=== PATIENT | female | born 1970 | race Caucasian/White ===

== ENCOUNTER 2016-09-28 06:36 | Day surgery (SDC) | payer BC ==
[2016-09-27 09:41] LABS: CHLORIDE,CL 107 mmol/L (98-110); SODIUM,NA 141 mmol/L (136-146)
[~2016-09-28 06:36] MED LIST: Lactated Ringers 1,000 ML IV SCH; Sodium Chloride 0.9% 10 ML Syringe FLUSH PRN; Sodium Chloride 0.9% 2.5 ML Syringe FLUSH PRN; ceFAZolin 2 GM in Premix Bag 1 BAG IV ONE
[2016-09-28] MEDS ORDERED: Scopolamine 1.5 MG Transdermal Patch TRDERM PRN (07:16)
--- NOTE | 2016-09-28 07:16 | PCM.PREANE ---
Preanesthetic Assessment - Anesthesia/Transfusion/Family Hx Anesthesia History: Prior Anesthesia Without Reaction Type of Anesthesia Reaction: Other (see below) (naemea) Family History of Anesthesia Reaction: No Transfusion History: Prior Transfusion Without Reaction Intubation History: Unknown - Review of Systems General: No Symptoms Pulmonary: No Symptoms Cardiovascular: No Symptoms Gastrointestinal: No symptoms Neurological: No Symptoms Other: Reports: None - Physical Assessment O2 Sat by Pulse Oximetry: 97 Respiratory Rate: 16 Vital Signs: Last Vital Signs Temp 35.9 C 09/28/16 06:57 Pulse 74 09/28/16 06:57 Resp 16 09/28/16 06:57 BP 117/75 09/28/16 06:57 Pulse Ox 97 09/28/16 06:57 Height: 1.63 m Weight: 75.296 kg ASA Class: 1 Mental Status: Alert & Oriented x3 Airway Class: Mallampati = 2 Dentition: Reports: Normal Dentition Thyro-Mental Finger Breadths: 3 Mouth Opening Finger Breadths: 3 ROM/Head Extension: Full Lungs: Clear to auscultation, Normal respiratory effort Cardiovascular: Regular Rate, Regular Rhythm - Lab Values: Laboratory Last Values WBC 5.28 K/uL (4.0-11.0) 09/27/16 08:57 RBC 5.12 M/uL (4.30-5.90) 09/27/16 08:57 Hgb 14.9 g/dL (12.0-16.0) 09/27/16 08:57 Hct 44.9 % (36.0-46.0) 09/27/16 08:57 MCV 87.7 fL (80.0-98.0) 09/27/16 08:57 MCH 29.1 pg (27.0-32.0) 09/27/16 08:57 MCHC 33.2 g/dL (31.0-37.0) 09/27/16 08:57 RDW Std Deviation 44.3 fl (28.0-62.0) 09/27/16 08:57 RDW Coeff of Brenda 14 % (11.0-15.0) 09/27/16 08:57 Plt Count 250 K/uL (150-400) 09/27/16 08:57 MPV 10.70 fL (7.40-12.00) 09/27/16 08:57 Nucleated RBC % 0.0 /100WBC 09/27/16 08:57 Nucleated RBCs # 0 K/uL 09/27/16 08:57 Sodium 141 mmol/L (136-146) 09/27/16 08:57 Potassium 4.5 mmol/L (3.5-5.1) 09/27/16 08:57 Chloride 107 mmol/L (98-110) 09/27/16 08:57 Carbon Dioxide 27 mmol/L (21-31) 09/27/16 08:57 BUN 7 mg/dL (6.0-23.0) 09/27/16 08:57 Creatinine 0.8 mg/dL (0.6-1.5) 09/27/16 08:57 Est Cr Clr Drug Dosing 77.49 mL/min 09/27/16 08:57 Estimated GFR (MDRD) > 60.0 ml/min 09/27/16 08:57 Glucose 86 mg/dL (60-110) 09/27/16 08:57 Calcium 8.9 mg/dL (8.8-10.8) 09/27/16 08:57 Blood Type O POSITIVE 09/27/16 08:57 Antibody Screen NEGATIVE 09/27/16 08:57 - Allergies Allergies/Adverse Reactions: Allergies Allergy/AdvReac Type Severity Reaction Status Date / Time No Known Allergies Allergy Verified 09/26/16 12:28 - Blood Blood Available: No - Anesthesia Plan Pre-Op Medication Ordered: None - Acknowledgements Anesthesia Type Planned: General Anesthesia Pt an Appropriate Candidate for the Planned Anesthesia: Yes Alternatives and Risks of Anesthesia Discussed w Pt/Guardian: Yes Pt/Guardian Understands and Agrees with Anesthesia Plan: Yes PreAnesthesia Questionnaire Gastrointestinal History: Reports: None Genitourinary History: Reports: None [employer]SE [employer]ER History: Reports: , Other (See Below) (ovarian cyst) Hematologic History: Reports: Blood Transfusion(s) Other Hematologic History: transfusion with hysterectomy - Past Surgical History Head Surgeries/Procedures: Reports: None GI Surgical History: Reports: Bariatric Procedure Female Surgical History: Reports: Section, Hysterectomy Musculoskeletal Surgical History: Reports: Shoulder Surgery Other Musculoskeletal Surgeries/Procedures:: left RTCR - SUBSTANCE USE Smoking Status *Q: Former Smoker (quit 25 years ago) Tobacco Use Within Last Twelve Months: No Recreational Drug Use History: No - HOME MEDS Home Medications: Home Meds Celecoxib [CeleBREX] 100 mg PO BID 06/11/14 [History] Amitriptyline HCl 50 mg PO BEDTIME 09/26/16 [History] - CURRENT (IN HOUSE) MEDS Current Meds: Current Medications Lactated Ringer's (Ringers, Lactated) 1,000 mls @ 125 mls/hr IV ASDIRECTED [facility] Last Admin: 09/28/16 06:59 Dose: 125 mls/hr Lactated Ringer's (Ringers, Lactated) 1,000 mls @ 100 mls/hr IV ASDIRECTED [facility] Sodium Chloride (Saline Flush) 10 ml FLUSH ASDIRECTED PRN PRN Reason: Keep Vein Open Sodium Chloride (Saline Flush) 2.5 ml FLUSH ASDIRECTED PRN PRN Reason: Keep Vein Open Discontinued Medications Cefazolin Sodium/Dextrose 2 gm (/ Premix) 50 mls @ 100 mls/hr IV ONETIME ONE Stop: 09/27/16 08:59
[2016-09-28] MEDS ORDERED: Propofol 200 MG/20 ML SDV ONE (07:30)
[2016-09-28] MEDS ORDERED: Midazolam 1 MG/ML 2 ML SDV ONE (07:31)
[2016-09-28] MEDS ORDERED: fentaNYL 100 MCG/2 ML SDV ONE ×2 (07:31→08:30)
[2016-09-28] MEDS ORDERED: Succinylcholine/Normal Saline 200 MG/10 ML Syringe ONE (07:33)
[2016-09-28] MEDS ORDERED: Ondansetron 4 MG/2 ML SDV ONE (07:33)
[2016-09-28] MEDS ORDERED: Dexamethasone 4 MG/ML 5 ML MDV ONE (07:33)
[2016-09-28] MEDS ORDERED: Rocuronium 10 MG/ML 10 ML Syringe ONE (07:33)
[2016-09-28] MEDS ORDERED: Neostigmine Methylsulfate 1 MG/ML 5 ML Syringe ONE (07:34)
[2016-09-28] MEDS ORDERED: Octyl 2-Cyanoacrylate 1 Tube ONE (07:48)
[2016-09-28] MEDS ORDERED: Fluorescein 5 ML Vial ONE (08:58)
[2016-09-28] MEDS ORDERED: Ondansetron 4 MG/2 ML SDV IVPUSH PRN (09:22)
[2016-09-28] MEDS ORDERED: Acetaminophen/oxyCODONE 325-5 MG Tab PO PRN ×2 (09:22)
[2016-09-28] MEDS ORDERED: Ketorolac 30 MG/ML SDV IVPUSH PRN (09:22)
[2016-09-28] MEDS ORDERED: Ketorolac 30 MG/ML SDV IVPUSH ONE (09:22)
[2016-09-28] MEDS ORDERED: Morphine 2 MG/ML Syringe IVPUSH PRN (09:22)
[2016-09-28] MEDS ORDERED: Promethazine 25 MG/ML SDV IM PRN (09:22)
[2016-09-28] MEDS ORDERED: Morphine 4 MG/ML Syringe IVPUSH PRN (09:22)
--- NOTE | 2016-09-28 09:28 | PCM.DCSUM1 ---
Discharge Summary - Discharge Data Discharge Date: 09/28/16 Discharge Disposition: Home, Self-Care 01 Condition: Good - Patient Summary/Data Operative Procedure(s) Performed: Dignostic Larascopy, lysis of adhesion.LSO and cystoscopy. - Discharge Plan Home Medications: Home Meds Celecoxib [CeleBREX] 100 mg PO BID 06/11/14 [History] Amitriptyline HCl 50 mg PO BEDTIME 09/26/16 [History] - General Info Date of Service: 09/28/16 Functional Status: Reports: pain controlled - Review of Systems General: Reports: No Symptoms HEENT: Reports: no symptoms Pulmonary: Reports: no symptoms Cardiovascular: Reports: No Symptoms Gastrointestinal: Reports: No symptoms Genitourinary: Reports: no symptoms Musculoskeletal: Reports: no symptoms Skin: Reports: no symptoms Neurological: Reports: No Symptoms Psychiatric: Reports: no symptoms - Patient Data Vitals - Most Recent: Last Vital Signs Temp 35.9 C 09/28/16 06:57 Pulse 74 09/28/16 06:57 Resp 16 09/28/16 07:16 BP 117/75 09/28/16 06:57 Pulse Ox 97 09/28/16 07:16 Weight - Most Recent: 75.296 kg I&O - Last 24 hours: Intake & Output 09/27/16 09/28/16 09/28/16 22:59 06:59 14:59 Output Total 50 Balance -50 Lab Results - Last 24 hrs: Laboratory Results - last 24 hr 09/27/16 09/27/16 Range/Units 08:57 08:57 Sodium 141 (136-146) mmol/L Potassium 4.5 (3.5-5.1) mmol/L Chloride 107 (98-110) mmol/L Carbon Dioxide 27 (21-31) mmol/L BUN 7 (6.0-23.0) mg/dL Creatinine 0.8 (0.6-1.5) mg/dL Est Cr Clr Drug Dosing 77.49 mL/min Estimated GFR (MDRD) > 60.0 ml/min Glucose 86 (60-110) mg/dL Calcium 8.9 (8.8-10.8) mg/dL Blood Type O POSITIVE Antibody Screen NEGATIVE Med Orders - Current: Current Medications Fentanyl (Sublimaze) 50 mcg IVPUSH Q5M PRN PRN Reason: Pain (moderate 4-6) Stop: 09/28/16 10:30 Lactated Ringer's (Ringers, Lactated) 1,000 mls @ 125 mls/hr IV ASDIRECTED [facility] Last Admin: 09/28/16 06:59 Dose: 125 mls/hr Lactated Ringer's (Ringers, Lactated) 1,000 mls @ 100 mls/hr IV ASDIRECTED [facility] Ketorolac Tromethamine (Toradol) 30 mg IVPUSH ONETIME ONE Stop: 09/28/16 09:23 Ketorolac Tromethamine (Toradol) 30 mg IVPUSH Q6H PRN PRN Reason: Pain (severe 7-10) Stop: 10/03/16 09:22 Morphine Sulfate (Morphine) 2 mg IVPUSH Q2H PRN PRN Reason: Pain (severe 7-10) Morphine Sulfate (Morphine) 4 mg IVPUSH Q2H PRN PRN Reason: Pain (severe 7-10) Ondansetron HCl (Zofran) 4 mg IVPUSH Q6H PRN PRN Reason: Nausea/Vomiting Oxycodone/Acetaminophen (Percocet 325-5 Mg) 1 tab PO Q4H PRN PRN Reason: Pain (moderate 4-6) Oxycodone/Acetaminophen (Percocet 325-5 Mg) 2 tab PO Q4H PRN PRN Reason: Pain (moderate 4-6) Promethazine HCl (Phenergan) 25 mg IM Q6H PRN PRN Reason: Nausea/Vomiting Scopolamine (Transderm-Scop) 1.5 mg TRDERM Q72H PRN PRN Reason: Nausea Last Admin: 09/28/16 07:32 Dose: 1.5 mg Sodium Chloride (Saline Flush) 10 ml FLUSH ASDIRECTED PRN PRN Reason: Keep Vein Open Sodium Chloride (Saline Flush) 2.5 ml FLUSH ASDIRECTED PRN PRN Reason: Keep Vein Open Discontinued Medications Dexamethasone (Dexamethasone) Confirm Administered Dose 20 mg .ROUTE .STK-MED ONE Stop: 09/28/16 07:34 Fentanyl (Sublimaze) Confirm Administered Dose 100 mcg .ROUTE .STK-MED ONE Stop: 09/28/16 07:32 Fentanyl (Sublimaze) Confirm Administered Dose 100 mcg .ROUTE .STK-MED ONE Stop: 09/28/16 08:31 Fluorescein Sodium (Ak-Fluor) Confirm Administered Dose 5 ml .ROUTE .STK-MED ONE Stop: 09/28/16 08:59 Glycopyrrolate () Confirm Administered Dose 1 mg .ROUTE .STK-MED ONE Stop: 09/28/16 07:35 Cefazolin Sodium/Dextrose 2 gm (/ Premix) 50 mls @ 100 mls/hr IV ONETIME ONE Stop: 09/27/16 08:59 Lidocaine HCl (Xylocaine-Mpf 1%) Confirm Administered Dose 5 ml .ROUTE .STK-MED ONE Stop: 09/28/16 07:32 Midazolam HCl (Versed 1 Mg/Ml) Confirm Administered Dose 2 mg .ROUTE .STK-MED ONE Stop: 09/28/16 07:32 Neostigmine Methylsulfate (Neostigmine) Confirm Administered Dose 5 mg .ROUTE .STK-MED ONE Stop: 09/28/16 07:35 Octyl Cyanoacrylate (Dermabond Advance) Confirm Administered Dose 1 applic .ROUTE .STK-MED ONE Stop: 09/28/16 07:49 Ondansetron HCl (Zofran) Confirm Administered Dose 4 mg .ROUTE .STK-MED ONE Stop: 09/28/16 07:34 Propofol (Diprivan 20 Ml) Confirm Administered Dose 200 mg .ROUTE .STK-MED ONE Stop: 09/28/16 07:31 Rocuronium [place] (Zemuron) Confirm Administered Dose 100 mg .ROUTE .STK-MED ONE Stop: 09/28/16 07:34 Succinylcholine Chloride (Succinylcholine In Ns Pf) Confirm Administered Dose 200 mg .ROUTE .STK-MED ONE Stop: 09/28/16 07:34 - Exam General: Reports: alert, oriented HEENT: Reports: Pupils equal, Pupils reactive, EOMI, Mucous membr. moist/pink Neck: Reports: supple Lungs: Reports: Clear to auscultation, Normal respiratory effort Cardiovascular: Reports: Regular Rate, Regular Rhythm Abdomen: Reports: bowel sounds present, soft, no tenderness, no distension (Female) Exam: Normal External Exam, Normal Speculum Exam, Normal Bimanual Exam Rectal (Female) Exam: Normal Exam, Normal Rectal Tone Back Exam: Reports: Normal Inspection, Full Range of Motion Extremities: Reports: no edema, normal pulses Skin: Reports: warm, dry, intact Wound/Incisions: Reports: healing well Neurological: Reports: no new focal deficit Psy/Mental Status: Reports: alert, normal affect, normal mood *Q Meaningful Use (DIS) - VTE *Q VTE Criteria *Q: - Stroke *Q Stroke Criteria *Q: - AMI *Q AMI Criteria *Q:
--- NOTE | 2016-09-28 09:28 | PCM.OPNOTE ---
- General Post-Op/Procedure Note Date of Surgery/Procedure: 09/28/16 Operative Procedure(s): Dignostic Larascopy, lysis of adhesion.LSO and cystoscopy. Pre Op Diagnosis: Pelvic mass Post-Op Diagnosis: Same Anesthesia Technique: General ET tube Primary Surgeon: Austin Bardales Warehouse Worker: Neyr Hernandez EBL in mLs: 50 Complications: None Condition: Good Free Text/Narrative:: Intake & Output 09/27/16 09/28/16 09/28/16 22:59 06:59 14:59 Output Total 50 Balance -50
[2016-09-28] MEDS: fentaNYL 100 MCG/2 ML SDV IVPUSH PRN ×2 (09:52→09:58)
--- NOTE | 2016-09-28 10:04 | PCM.POSTAN ---
POST ANESTHESIA ASSESSMENT - MENTAL STATUS Mental Status: alert, oriented - RESPIRATORY Respiratory Status: respiratory rate WNL, airway patent, O2 saturation stable - CARDIOVASCULAR CV Status: pulse rate WNL, blood pressure stable - GASTROINTESTINAL GI Status: no symptoms - PAIN Pain Score: 5 - POST OP HYDRATION Hydration Status: adequate & stable - OBSERVATIONS Free Text/Narrative:: no anesthesia problems
[2016-09-28] MEDS ORDERED: Promethazine 25 MG/ML SDV IM ONE (10:28)
[2016-09-28 13:46] VITALS: BP 115/66
--- NOTE | 2016-09-28 14:18 | OR ---
SURGEON: Austin Bardales MD DATE OF PROCEDURE: PREOPERATIVE DIAGNOSES: Pelvic pain and left ovarian cyst. POSTOPERATIVE DIAGNOSES: Pelvic pain and left ovarian cyst. OPERATION PERFORMED: Multiple puncture diagnostic laparoscopy, extensive lysis of adhesion, left salpingo-oophorectomy, and cystoscopy. ENVIRONMENTAL HEALTH OFFICER: EDILMA Smith. ANESTHESIA: General endotracheal intubation, Dr. Tobias. FINDINGS: An 8 cm clear cystic ray arising from right ovary, the left ovary essentially is normal and is varied in adhesion and it was felt that it is not necessary to remove the right ovary. INDICATION: [place] refer to the admit note. PROCEDURE IN DETAIL: The patient was brought to the OR, properly identified, and after adequate level of general anesthesia, straight catheter was used to empty the bladder and sponge and stick was placed in the vagina for manipulation. Then, the operation shifted abdominally. Stab wound done beneath the umbilicus. The Veress needle was placed in the peritoneal cavity and that cavity insufflated to 6 with carbon dioxide. A 5 mm trocar was entered beneath the umbilicus utilizing the Visiport technique. Once we are entered, 10 to 12 trocar placed in the left iliac fossa and 5-mm trocar in the right iliac fossa. The operation started by identifying the landmark of the anatomy and we started with lysing of the adhesion to restore normal anatomy with the judicial use of the Harmonic scalpel and the Endo scissor. The sigmoid colon was dissected away from the pelvic sidewalls and cul-de-sacs and reflected it and medially and then the left ovary was exposed and again with a judicious dissection, using sharp and blunt dissection with judicious use of the scissor and the Harmonic scalpel, the left ovary was isolated from its attachment to the pelvic sidewall and the and the pelvic floor. The superior pedicle was coagulated and transected and then the left ovary was removed making sure that the ureter was not in the harm way. Once that was done, then the ovary was removed through the 10/12 laparoscopic port. Then thorough irrigation was done. There was no oozing, no bleeding. Attention was paid to the right side and again with the judicious dissection from the pelvic sidewall and the ovaries looked completely normal. It was felt that there was no need to proceed in the procedure to remove that ovary because it probably would increase the patient risk, so we started at this juncture and we asked the anesthesiologist to give the patient the injection for the dye and then cystoscopy was performed. The bladder was intact. Both ureteric orifices were seen with the dye coming from both of them. Thus, the patency of both ureters verified and satisfied with these finding. The instrument and hardware were retrieved from the abdomen and the vagina. The multiple laparoscopic incision was closed in layers. Instrument and sponge count was correct. The patient tolerated the procedure well, went to recovery room in general condition. ESTEFANIA MACHADO /[id number]
== END 2016-09-28 13:00 | disposition home or self-care (01) ==
LOC: MW.SDS 06:36
PROVIDERS: ATTEND Obstetrics & Gynecology
PROC: 0UB14ZZ Excision of Left Ovary, Percutaneous Endoscopic Approach (ICD-10-PCS; principal; 2016-09-28)
PROC: 0UB64ZZ Excision of Left Fallopian Tube, Percutaneous Endoscopic Approach (ICD-10-PCS; 2016-09-28)
PROC: 0UN14ZZ Release Left Ovary, Percutaneous Endoscopic Approach (ICD-10-PCS; 2016-09-28)
DX: N83.292 Other ovarian cyst, left side (principal); N83.202 Unspecified ovarian cyst, left side; N83.02 Follicular cyst of left ovary; N73.6 Female pelvic peritoneal adhesions (postinfective); M25.559 Pain in unspecified hip; G89.29 Other chronic pain; G47.01 Insomnia due to medical condition
CPT/HCPCS: 36415; 58661; 80048; 85027; 86850; 86900; 86901; 88307; A9270; J1100; J1885; J2250; J2270; J2405; J2550; J3010; J7120; 00840; J2704

== ENCOUNTER 2020-04-08 11:08 | Day surgery (SDC) | payer BC ==
[2020-04-08] MEDS ORDERED: Betamethasone Acetate/Betamethasone Sod Phosphate 30 MG/5 ML MDV EPIDUR ONE (12:00)
[2020-04-08] MEDS ORDERED: Iopamidol 200-M 10 ML vial ITHECAL ONE (12:00)
[2020-04-08] MEDS ORDERED: Lidocaine 2% 5 ML SDV INJECT ONE (12:00)
[2020-04-08] MEDS ORDERED: Ropivacaine 0.5% 5 MG/ML 30 ML SDV INJECT ONE (12:00)
--- NOTE | 2020-04-08 14:01 | OR ---
SURGEON: Karlene Carter D.O. DATE OF PROCEDURE: 04/08/2020 PRIMARY SURGEON: Karlene Carter DO ASSISTANTS: OR staff present: 1. Galindo Overton RN. 2. Jose Gutierres RN. 3. Linwood Dumont, RT. WOUND CLASS: I. PREOPERATIVE DIAGNOSES: 1. Lumbar degenerative disk disease. 2. Lumbar disk protrusions, L4-5 and L5-S1. 3. Lumbar spondylosis. 4. Lumbar neural foraminal stenosis, L4-5 and L5-S1. 5. Left lower extremity L4-5-S1 radiculopathy. POSTOPERATIVE DIAGNOSES: 1. Lumbar degenerative disk disease. 2. Lumbar disk protrusions, L4-5 and L5-S1. 3. Lumbar spondylosis. 4. Lumbar neural foraminal stenosis, L4-5 and L5-S1. 5. Left lower extremity L4-5,S1 radiculopathy. PROCEDURES PERFORMED: 1. Left L4 transforaminal epidural steroid injection. 2. Left L5 transforaminal epidural steroid injection. 3. Fluoroscopic guidance for needle placement. 4. Local with oral Valium for sedation. SCREENING QUESTIONS: The patient answered "no" to all of the following questions: 1. Are you allergic to iodine, Betadine or latex? 2. Do you have a bleeding disorder? 3. Do you have any joint replacements, heart valve replacements, or a pacemaker? 4. Are you allergic to anti-inflammatories or blood thinners? 5. Do you have any current local or systemic infections? DESCRIPTION OF PROCEDURE: The patient had the procedure thoroughly explained including risks, benefits and alternatives. Consent was signed in my clinic indicating understanding and willingness to proceed. The patient presented to [facility] [place] where the patient was escorted to the dressing room to disrobe and change into a hospital gown. Preoperative vital signs were taken and stable. The patient reported that Valium was taken prior to the procedure. The patient was brought to the procedure room and placed in the prone position on the table. A pillow was placed under the abdomen in order to flatten the lumbar lordosis. The back was prepped with ChloraPrep and sterilely draped. All personnel in the operating room were dressed in appropriate attire including surgical scrubs, head and shoe covers. This was to ensure sterility while in the treatment room. During the time fluoroscopy was in use, all personnel in the operating room wore lead olivares with thyroid collars. Sterile technique was used during the procedure. The fluoroscope was placed for the left L4 transforaminal epidural steroid injection. There was no sign of infection at the skin site for needle insertion. The skin was anesthetized with 2% lidocaine with a 27 gauge 1-1/2 inch needle. Then, a 22 gauge 3-1/2 inch spinal needle, advanced to the left L4 Foramen at the "6 o'clock position of the eyeof the bebeto dog". Under direct fluoroscopic guidance needle position was verified in three views; AP, oblique and lateral, with 0.2 cubic centimeters increments of Isovue-200 dye. No intravascular flow pattern was observed under live fluoroscopy.Then 6 milligrams of Celestone and local was slowly injected after negative aspiration of heme, cerebrospinal fluid and no paresthesias were noted. The needle was cleared prior to removal from the skin. The procedure was then repeated as above for the left L5 transforaminal epidural steroid injectionNo adverse reactions were noted. The patient was brought to the recovery room awake and in good condition by my staff. The patient was monitored and discharge instructions were given after a brief stay in the recovery area. Both oral and written discharge and follow up instructions were given. The patient will follow up in the clinic in 3-4 weeks post procedure to evaluate the efficacy. The patient verbalized understanding including understanding of those signs and symptoms that would require emergency care and knows how to contact the office if there are any problems or questions in the meantime. PREOPERATIVE PAIN: 8/10. POSTOPERATIVE PAIN: 2 to 3 /10. FOLLOWUP: In the Pain Clinic in 1 month. DEVYN / CARTER /[id number] PA
== END 2020-04-08 13:05 ==
LOC: MW.SDS 11:08
PROVIDERS: ATTEND Anesthesiology
DX: G89.4 Chronic pain syndrome (principal); M51.16 Intervertebral disc disorders with radiculopathy, lumbar region; M51.17 Intervertebral disc disorders with radiculopathy, lumbosacral region; M47.26 Other spondylosis with radiculopathy, lumbar region; M48.061 Spinal stenosis, lumbar region without neurogenic claudication; M48.07 Spinal stenosis, lumbosacral region; G47.01 Insomnia due to medical condition; M79.18 Myalgia, other site; M53.3 Sacrococcygeal disorders, not elsewhere classified; F41.9 Anxiety disorder, unspecified; Z88.8 Allergy status to other drugs, medicaments and biological substances; Z79.899 Other long term (current) drug therapy; Z98.890 Other specified postprocedural states

== ENCOUNTER 2020-05-18 10:44 | Day surgery (SDC) | payer BC ==
[2020-05-18] MEDS ORDERED: Ropivacaine 0.5% 5 MG/ML 30 ML SDV INJECT ONE (12:00)
[2020-05-18] MEDS ORDERED: Iopamidol 200-M 10 ML vial ITHECAL ONE (12:00)
[2020-05-18] MEDS ORDERED: Lidocaine 2% 5 ML SDV INJECT ONE (12:00)
[2020-05-18] MEDS ORDERED: Betamethasone Acetate/Betamethasone Sod Phosphate 30 MG/5 ML MDV EPIDUR ONE (12:00)
--- NOTE | 2020-05-18 19:51 | OR ---
SURGEON: Karlene Carter D.O. DATE OF PROCEDURE: 05/18/2020 PRIMARY SURGEON: Karlene Carter D.O. ASSISTANTS: OR staff present: 1. Linwood Pal RN. 2. Maggi Garcia RN. 3. Linwood Dumont RT. WOUND CLASS: I. PREOPERATIVE DIAGNOSES: 1. Lumbar L5-S1 herniated disk. 2. L5-S1 bilateral lower extremities radiculopathy. 3. Lumbar spondylosis. POSTOPERATIVE DIAGNOSES: 1. Lumbar L5-S1 herniated disk. 2. L5-S1 radiculopathy. 3. Lumbar spondylosis. PROCEDURES PERFORMED: 1. Left L5 transforaminal epidural steroid injection. 2. Fluoroscopic guidance for needle placement. 3. Local with oral Valium for sedation. SCREENING QUESTIONS: The patient answered "no" to all of the following questions: 1. Are you allergic to iodine, Betadine or latex? 2. Do you have a bleeding disorder? 3. Do you have any joint replacements, heart valve replacements, or a pacemaker? 4. Are you allergic to anti-inflammatories or blood thinners? 5. Do you have any current local or systemic infections? DESCRIPTION OF PROCEDURE: The patient had the procedure thoroughly explained including risks, benefits and alternatives. Consent was signed in my clinic indicating understanding and willingness to proceed. The patient presented to [facility] [place] where the patient was escorted to the dressing room to disrobe and change into a hospital gown. Preoperative vital signs were taken and stable. The patient reported that Valium was taken prior to the procedure. The patient was brought to the procedure room and placed in the prone position on the table. A pillow was placed under the abdomen in order to flatten the lumbar lordosis. The back was prepped with ChloraPrep and sterilely draped. All personnel in the operating room were dressed in appropriate attire including surgical scrubs, head and shoe covers. This was to ensure sterility while in the treatment room. During the time fluoroscopy was in use, all personnel in the operating room wore lead olivares with thyroid collars. Sterile technique was used during the procedure. The fluoroscope was placed for the Left L5 transforaminal epidural steroid injection. There was no sign of infection at the skin site for needle insertion. The skin was anesthetized with 2% lidocaine with a 27 gauge 1-1/2 inch needle. Then a 22 gauge 3-1/2 inch spinal needle, advanced to the L5. Under direct fluoroscopic guidance needle position was verified in three views; AP, oblique and lateral, with 0.2 cubic centimeters increments of Isovue-200 dye. No intravascular flow pattern was observed under live fluoroscopy. Then a 3cc mixture of 12 milligrams of Celestone and local was slowly injected after negative aspiration of heme, cerebrospinal fluid and no paresthesias were noted. The needle was cleared prior to removal from the skin. No adverse reactions were noted. The patient was brought to the recovery room awake and in good condition by my staff. The patient was monitored and discharge instructions were given after a brief stay in the recovery area. Both oral and written discharge and follow up instructions were given. The patient will follow up in the clinic in 3-4 weeks post procedure to evaluate the efficacy. The patient verbalized understanding including understanding of those signs and symptoms that would require emergency care and knows how to contact the office if there are any problems or questions in the meantime. PREOPERATIVE PAIN: 5/10. POSTOPERATIVE PAIN: /10. FOLLOWUP: In the Pain Clinic in 3 weeks. DEVYN / CARTER /[id number] PA
== END 2020-05-18 12:57 ==
LOC: MW.SDS 10:44
PROVIDERS: ATTEND Anesthesiology
DX: G89.29 Other chronic pain (principal); M51.17 Intervertebral disc disorders with radiculopathy, lumbosacral region; M47.26 Other spondylosis with radiculopathy, lumbar region; M51.16 Intervertebral disc disorders with radiculopathy, lumbar region; M47.27 Other spondylosis with radiculopathy, lumbosacral region; Z88.8 Allergy status to other drugs, medicaments and biological substances; M79.18 Myalgia, other site; Z79.899 Other long term (current) drug therapy; Z98.890 Other specified postprocedural states

== ENCOUNTER 2023-04-05 10:35 | Day surgery (SDC) | payer BC ==
[~2023-04-05 10:35] MED LIST changes: +Sodium Chloride 0.9% 20 ML SDV IV PRN; -ceFAZolin 2 GM in Premix Bag 1 BAG IV ONE
[2023-04-05] MEDS ORDERED: propofoL 50 ML ONE (13:15)
[2023-04-05 15:09] VITALS: BP 111/61; PULSE 66
== END 2023-04-05 14:10 | disposition home or self-care (01) ==
LOC: MW.SDS 10:35
PROVIDERS: ATTEND Surgery
DX: Z12.11 Encounter for screening for malignant neoplasm of colon (principal); F41.9 Anxiety disorder, unspecified; L98.7 Excessive and redundant skin and subcutaneous tissue; Z79.899 Other long term (current) drug therapy; Z88.1 Allergy status to other antibiotic agents
CPT/HCPCS: 45378; J2704; J7120

== ENCOUNTER 2024-12-23 05:30 | Emergency (ER) | payer SELFPAY ==
[2024-12-23 06:41] LABS: BASOPHILS ABSOLUTE AUTO 0.04 K/uL (0.00-0.20); BASOPHILS PERCENT AUTO 0.5 % (0.0-1.0); EOSINOPHILS ABSOLUTE AUTO 0.06 K/uL (0.00-0.45); EOSINOPHILS PERCENT AUTO 0.8 % (0.0-6.0); IMMATURE GRAN ABSOLUTE AUTO 0.02 K/uL (0.00-0.05); IMMATURE GRAN PERCENT AUTO 0.3 % (0.0-0.4); LYMPHOCYTES ABSOLUTE AUTO 1.49 K/uL (1.00-4.80); LYMPHOCYTES PERCENT AUTO 19.5 % (24.0-44.0); MEAN PLATELET VOLUME 9.9 fL (9.4-12.3); MONOCYTES ABSOLUTE AUTO 1.08 K/uL (0.00-0.80); MONOCYTES PERCENT AUTO 14.1 % (0.0-8.0); NEUTROPHILS ABSOLUTE AUTO 4.97 K/uL (1.80-7.70); NEUTROPHILS PERCENT AUTO 64.8 % (41.0-71.0); NRBC ABSOLUTE 0.00 K/uL (0.00-0.02); NRBC PERCENT 0.0 /100WBC (0.0-0.2); PLATELET COUNT,PLT 227 K/uL (150-400); RED BLOOD CELL COUNT 3.83 M/uL (4.10-5.30); WHITE BLOOD CELL COUNT,WBC 7.66 K/uL (3.9-11.3)
[2024-12-23 06:55] LABS: APPEARANCE,URINE CLOUDY; GLUCOSE,URINE NEGATIVE (NEGATIVE); OCCULT BLOOD,URINE MODERATE (NEGATIVE)
[2024-12-23 07:03] LABS: EPITHELIAL CELLS,URINE RARE (NONE-FEW)
[2024-12-23 07:04] LABS: A/G RATIO 0.6 (0.9-1.6); ALANINE AMINOTRANSFERASE,ALT 63.0 IU/L (14-63); ASPARTATE AMNIOTRANSFERASE,AST 30.0 IU/L (15-37); BILIRUBIN TOTAL 0.4 mg/dL (0.2-1.0); BLOOD UREA NITROGEN,BUN 7.0 mg/dL (7.0-18.0); CHLORIDE,CL 104.0 mmol/L (98-107); CREATININE 0.8 mg/dL (0.6-1.0); EST CRCL DRUG DOSING (CG) 71.03 mL/min; GLUCOSE RANDOM 98.0 mg/dL (74-106); POTASSIUM,K 2.8 mmol/L (3.5-5.1); PROTEIN TOTAL,TP 6.5 g/dL (6.4-8.2); SODIUM,NA 140.0 mmol/L (136-145)
[2024-12-23 07:05] LABS: ESTIMATED GFR 89.0 mL/min (>60)
[2024-12-23 07:09] LABS: CARBON DIOXIDE,CO2 23.9 mmol/L (21.0-32.0)
[2024-12-23] MEDS: Potassium Chloride 20 MEQ Tab.ER PO ONE (07:35)
[2024-12-23] MEDS: Ketorolac 30 MG/ML SDV IVPUSH ONE ×2 (07:46→11:42)
[2024-12-23] MEDS: Ondansetron 4 MG/2 ML SDV IVPUSH ONE (07:47)
[2024-12-23] MEDS: Magnesium Sulfate 2 GM/50 mL 2 GM in Premix Bag 1 BAG IV ONE (09:15)
[2024-12-23 11:41] VITALS: BP 118/71; PULSE 83
== END 2024-12-23 11:50 | disposition home or self-care (01) ==
LOC: MW.ED 05:30
DX: N39.0 Urinary tract infection, site not specified (principal); E87.6 Hypokalemia; Z90.710 Acquired absence of both cervix and uterus; Z79.899 Other long term (current) drug therapy; Z79.84 Long term (current) use of oral hypoglycemic drugs; Z88.1 Allergy status to other antibiotic agents
CPT/HCPCS: 36415; 71045; 80053; 81001; 83735; 84484; 85025; 87086; 87426; 87468; 87469; 87484; 87798; 93005; 96361; 96365; 96375; 96376; 99284; A9270; J1885; J2405; J3475; J7030; 93010

== ENCOUNTER 2024-12-27 06:18 | Emergency (ER) | payer BC, OTHER ==
[2024-12-27 07:00] LABS: MEAN PLATELET VOLUME 10.3 fL (9.4-12.3); NRBC ABSOLUTE 0.00 K/uL (0.00-0.02); NRBC PERCENT 0.0 /100WBC (0.0-0.2); PLATELET COUNT,PLT 186 K/uL (150-400); RED BLOOD CELL COUNT 3.82 M/uL (4.10-5.30); WHITE BLOOD CELL COUNT,WBC 21.22 K/uL (3.9-11.3)
[2024-12-27] MEDS: Ciprofloxacin in D5W 400 MG in Premix Bag 1 BAG IV SCH (07:06)
[2024-12-27] MEDS: Ketorolac 30 MG/ML SDV IVPUSH ONE (07:06)
[2024-12-27 07:08] LABS: A/G RATIO 0.5 (0.9-1.6); ALANINE AMINOTRANSFERASE,ALT 78.0 IU/L (14-63); ASPARTATE AMNIOTRANSFERASE,AST 64.0 IU/L (15-37); BILIRUBIN TOTAL 0.9 mg/dL (0.2-1.0); BLOOD UREA NITROGEN,BUN 25.0 mg/dL (7.0-18.0); CARBON DIOXIDE,CO2 17.6 mmol/L (21.0-32.0); CHLORIDE,CL 103.0 mmol/L (98-107); CREATININE 1.8 mg/dL (0.6-1.0); EST CRCL DRUG DOSING (CG) 31.57 mL/min; GLUCOSE RANDOM 91.0 mg/dL (74-106); POTASSIUM,K 2.9 mmol/L (3.5-5.1); PROTEIN TOTAL,TP 6.1 g/dL (6.4-8.2); SODIUM,NA 138.0 mmol/L (136-145)
[2024-12-27 07:14] LABS: ESTIMATED GFR 33.0 mL/min (>60)
[2024-12-27 07:20] LABS: BAND ABSOLUTE MAN 5.31; BAND PERCENT MAN 25 %; LYMPHOCYTES ABSOLUTE MAN 0.42 K/uL (1.00-4.80); LYMPHOCYTES PERCENT MAN 2 % (24-44); SEG NEUTROPHILS ABSOLUTE MAN 15.49 K/uL (1.80-7.70); SEG NEUTROPHILS PERCENT MAN 73 % (41-71)
[2024-12-27] MEDS ORDERED: Lactated Ringers 500 ML IV SCH (08:30)
[2024-12-27] MEDS: Iopamidol 755 Mg/ML 100 ML Bottle IVPUSH ONE (08:39)
[2024-12-27] MEDS: Norepinephrine Bit/D5W Premix 250 ML IV SCH (08:54)
[2024-12-27] MEDS: Potassium Chloride 20 MEQ Tab.ER PO ONE (09:43)
[2024-12-27] MEDS: Magnesium Sulfate 2 GM/50 mL 2 GM in Premix Bag 1 BAG IV ONE (09:43)
[2024-12-27] MEDS: Lactated Ringers 1,000 ML IV ONE (09:46)
[2024-12-27 10:18] LABS: APPEARANCE,URINE CLOUDY; GLUCOSE,URINE NEGATIVE (NEGATIVE); OCCULT BLOOD,URINE MODERATE (NEGATIVE)
[2024-12-27 10:27] LABS: EPITHELIAL CELLS,URINE FEW (NONE-FEW)
[2024-12-27 10:39] VITALS: BP 117/81; PULSE 97
== END 2024-12-27 11:17 ==
LOC: MW.ED 06:18
DX: N13.9 Obstructive and reflux uropathy, unspecified (principal); N39.0 Urinary tract infection, site not specified; N17.9 Acute kidney failure, unspecified; N12 Tubulo-interstitial nephritis, not specified as acute or chronic; E87.6 Hypokalemia; R74.8 Abnormal levels of other serum enzymes; Z90.710 Acquired absence of both cervix and uterus; Z79.899 Other long term (current) drug therapy; Z79.84 Long term (current) use of oral hypoglycemic drugs; Z88.1 Allergy status to other antibiotic agents
CPT/HCPCS: 36415; 74177; 80053; 81001; 83605; 83735; 85025; 87040; 87077; 87086; 87186; 96365; 96367; 96375; 99285; A9270; J0744; J1885; J3475; J7030; J7040; J7120; Q9967